=== PATIENT | male | born 1960 ===

== ENCOUNTER → 2021-12-06 15:04 | Outpatient (BNVA) | payer MEDICARE, MEDICAID, SELFPAY | PROVIDERS: PCP Internal Medicine; Visit Provider Urology | DX: R39.15 Urgency of urination (principal); N32.81 Overactive bladder; N32.0 Bladder-neck obstruction; R35.1 Nocturia | CPT/HCPCS: 99202 ==

== ENCOUNTER → 2022-02-15 15:05 | Outpatient (BNVA) | payer MEDICARE, MEDICAID, SELFPAY | PROVIDERS: PCP Internal Medicine; Visit Provider Urology | DX: N32.81 Overactive bladder (principal); N32.0 Bladder-neck obstruction; Z79.899 Other long term (current) drug therapy | CPT/HCPCS: 99212 ==

== ENCOUNTER 2023-12-06 14:41 | Outpatient (REF) | payer MEDICARE, MEDICAID, SELFPAY ==
[2023-12-06 17:17] LABS: MANUAL DIFF FLAG NO
[2023-12-06 17:27] LABS: Basophils Absolute Auto 0.1 X10*3/uL (0.0-0.2); Basophils Percent Auto 0.8 % (0-2); Eosinophils Absolute Auto 0.5 X10*3/uL (0.0-0.4); Eosinophils Percent Auto 4.6 % (0-4); Hematocrit 41.8 % (42.0-52.0); Hemoglobin 13.3 g/dl (14.0-18.0); Imm Gran Abs Auto 0.03 X10*3/uL (0.00-0.03); Imm Gran Pct Auto 0.3 % (0.0-0.4); Lymphocytes Absolute Auto 2.3 X10*3/uL (1.2-4.9); Lymphocytes Percent Auto 21.8 % (20-40); Mean Corpuscular HGB Conc 31.8 g/dl (31.0-36.0); Mean Corpuscular Hemoglobin 28.2 pg (27.0-33.0); Mean Corpuscular Volume 88.6 fL (80.0-98.0); Mean Platelet Volume 11.3 fL (9.4-12.4); Monocytes Absolute Auto 1.1 X10*3/uL (0.1-1.2); Monocytes Percent Auto 10.2 % (2-11); Neutrophils Absolute Auto 6.5 x10*3/uL (2.0-8.3); Neutrophils Percent Auto 62.3 % (45-73); Platelet Count 309 X10*3/uL (160-400); Red Blood Count 4.72 X10*6/uL (4.60-5.80); Red Cell Distribution Width 14.6 % (11.0-16.0); White Blood Count 10.4 X10*3/uL (4.8-10.8)
[2023-12-06 17:56] LABS: Alanine Aminotransferase 22 U/L (0-40); Albumin Level 3.7 g/dL (3.5-5.0); Alkaline Phosphatase 97 U/L (39-117); Anion Gap 12 (12-20); Aspartate Amino Transferase 13 U/L (5-37); Bilirubin Total 0.5 mg/dL (0.0-1.0); Blood Urea Nitrogen 19 mg/dL (9-16); Calcium 9.3 mg/dL (8.4-10.2); Carbon Dioxide 30 mmol/L (22-29); Chloride 104 mmol/L (96-108); Cholesterol 165 mg/dL (<200); Estimated Glomerular Filt Rate 59; Glucose Random 79 mg/dL (60-115); HDL Cholesterol 27 mg/dL (>40); LDL Cholesterol Calculated 89 mg/dL (<100); Potassium 4.1 mmol/L (3.3-5.1); Sodium 142 mmol/L (135-145); Total Protein 7.4 g/dL (6.5-8.0); Triglycerides 247 mg/dL (<150)
[2023-12-06 18:26] LABS: PSA,Total (Free>4and<10) 9.06 ng/mL (0.00-4.00)
[2023-12-10 12:08] LABS: Free Prostate Spec Ag 2.4 ng/mL; Percent Free Prostate Spec Ag NOT CALCULATED % (calc) (>25); Prostate Specific Ag Total 10.1 ng/mL (< OR = 4.0)
== END 2023-12-06 14:42 | disposition home or self-care (01) ==
LOC: HO.CHCLDS 14:41
PROVIDERS: Visit Provider Internal Medicine
DX: Z12.5 Encounter for screening for malignant neoplasm of prostate (principal); I11.0 Hypertensive heart disease with heart failure; I50.32 Chronic diastolic (congestive) heart failure; I63.89 Other cerebral infarction; R35.1 Nocturia; F32.A Depression, unspecified
CPT/HCPCS: 36415; 80053; 80061; 84153; 84154; 85025

== ENCOUNTER 2024-01-04 13:50 | Outpatient (AMB) | payer MEDICAID, SELFPAY ==
--- NOTE | 2024-01-04 14:03 | MHC.OFFVIS ---
Intake Visit Reasons: Elevated PSA Intake Note: Patient is Present for Elevated PSA Urology Medication: Tamsulosin, Myrbetriq Antibiotic Allergies: None Blood Thinners: None Allergies No Known Allergies Allergy (Verified 01/04/24 14:04) Medication List - Last Reconciled 01/04/24 by Shawn Berumen MD amlodipine 5 mg PO DAILY atorvastatin 80 mg PO DAILY carvedilol 12.5 mg PO BID clopidogrel 75 mg PO DAILY fluoxetine 20 mg PO DAILY furosemide 40 mg PO DAILY mirabegron ER 50 mg PO DAILY 30 days tamsulosin 0.4 mg PO DAILY tamsulosin 0.4 mg PO BEDTIME 90 days HPI Comments Details: Diann is a pleasant German male. He is a patient of Dr. Weaver. He is seen for the following urologic conditions - nocturia - overactive bladder - bladder outlet obstruction Last seen in mid 2021 Recent PSA shows elevation 12/01 9.1 Nocturia times 3-4 Represcribed Myrbetriq 50 mg Discussed possible cardiac causes Add finasteride Repeat PSA in 2 months with Check cystoscopy Lower urinary tract symptoms Stroke in late 2018 Past 6 months developed urgency and frequency Tamsulosin decreased nocturia from 4-5 times a night to 2 or 3 times a night Based on age and cognitive risk factors recommend trial of Myrbetriq Tamsulosin refilled Myrbetriq 50 mg trial PFSH Medical History Hematuria Stroke OA (osteoarthritis) Surgical History History of open heart surgery Review of Systems Const Denies chills and Denies fever(s) Card Reports no additional complaints and Denies syncope Resp Denies cough GI Denies abdominal pain and Denies heartburn Reports as per HPI and Denies change in libido Neuro Denies syncope Psych Denies change in libido Endo Denies change in libido Physical Exam Const General: cooperative, healthy appearing, comfortable and no acute distress Orientation/consciousness: patient oriented x3 HEENT Face and sinus: Yes normal facial exam Mouth: moist mucous membranes Neck Neck: Yes normal visual inspection, Yes full ROM and Yes trachea midline Chest Chest palpation & inspection: normal inspection of the chest Resp Effort & Inspection: normal respiratory effort, able to speak in complete sentences and no respiratory distress GI Inspection: Yes normal to inspection Back/Spine/Pelvis Cervical Spine: normal cervical lordosis Thoracic/Lumbar Spine: thoracic and lumbar spine normal to inspection Skin General skin exam: no rashes or lesions noted Neuro General: patient oriented x3, gait normal, tone normal and moves all extremities Extrem General: Yes normal to inspection and Yes capillary refill normal Assessment & Plan Assessment & Plan (1) Overactive bladder: Code(s): N32.81 - Overactive bladder Category: Medical (2) Nocturia more than twice per night: Code(s): R35.1 - Nocturia Category: Medical (3) Bladder outlet obstruction: Code(s): N32.0 - Bladder-neck obstruction Category: Medical Plan Two month follow-up ultrasound and cystoscopy Orders: Orders PSA,Total (Free>4and<10) 2 Months R35.1 - Nocturia US bladder 2 Months R35.1 - Nocturia Medications: New finasteride 5 mg PO DAILY 90 days 90 tabs 1RF N13.8 - Other obstructive and reflux uropathy, N40.1 - Benign prostatic hyperplasia with lower urinary tract symptoms, R33.9 - Retention of urine, unspecified, R35.1 - Nocturia mirabegron ER (Myrbetriq) 50 mg PO DAILY 30 days 30 tabs 1RF R35.1 - Nocturia Patient Instructions: Imaging studies, laboratory and physical exam results were discussed and reviewed in detail. No major barriers to patient understanding were identified. An opportunity to ask questions regarding the treatment plan was provided. All questions were answered. The patient expressed understanding and agreement with the above treatment plan. The patient is aware they should contact our office by phone for worsening of their current condition or the appearance of new urologic symptoms. Compliance is encouraged with any medications and followup testing that is ordered. It is a privilege to participate in the urologic care of your patient. If you have any questions or concerns regarding treatment for the above conditions, or other urologic issues, please do not hesitate to contact me. The office telephone contact is [phone]. This note is constructed using voice recognition software. While every effort has been made to ensure accuracy supervisor maintenance and custodians errors may have been included. Yours sincerely, Dr Shawn Berumen MD, [facility] - Urology Providers of Expert, Compassionate Care for the Genitourinary System Coding Level of Care Code Est Pt Level 4 (78657) Diagnoses Overactive bladder N32.81 Nocturia more than twice per night R35.1 Bladder outlet obstruction N32.0
== END 2024-01-04 14:31 | disposition home or self-care (01) ==
PROVIDERS: PCP Internal Medicine; Visit Provider Urology
DX: N32.81 Overactive bladder (principal); R35.1 Nocturia; N32.0 Bladder-neck obstruction
CPT/HCPCS: 99214

== ENCOUNTER → 2024-01-04 13:50 | Outpatient (BNVA) | payer MEDICARE, MEDICAID, SELFPAY | PROVIDERS: PCP Internal Medicine; Visit Provider Urology | DX: N40.1 Benign prostatic hyperplasia with lower urinary tract symptoms (principal); R35.1 Nocturia; R39.15 Urgency of urination; N32.81 Overactive bladder; N13.8 Other obstructive and reflux uropathy; R33.8 Other retention of urine; R97.20 Elevated prostate specific antigen [PSA]; Z86.73 Personal history of transient ischemic attack (TIA), and cerebral infarction without residual deficits | CPT/HCPCS: 99212 ==

== ENCOUNTER 2024-05-08 15:41 | Outpatient (REF) | payer MEDICAID, SELFPAY ==
[2024-05-08 19:12] LABS: HCG Quantitative < 2 mIU/mL; TSH reflex Free T4 2.93 uIU/mL (0.32-4.0)
[2024-05-09 09:42] LABS: ~Hepatitis C Antibody Nonreactive (Nonreactive)
[2024-05-09 21:33] LABS: Lutenizing Hormone 7.4 mIU/mL (1.6-15.2); Sex Hormone Binding Globulin 32 nmol/L (22-77)
[2024-05-15 01:54] LABS: Estradiol Ultra Sensitive 32 pg/mL (< OR = 29)
[2024-05-17 15:48] LABS: Testosterone, Total 294 ng/dL (250-1100)
== END 2024-05-08 15:42 | disposition home or self-care (01) ==
LOC: HO.CHCLDS 15:41
PROVIDERS: Visit Provider Internal Medicine
DX: N62 Hypertrophy of breast (principal); I10 Essential (primary) hypertension
CPT/HCPCS: 36415; 82670; 83002; 84270; 84403; 84443; 84702; 86803